=== PATIENT | male | born 2000 | race Hispanic/Latino ===

== ENCOUNTER 2021-12-26 09:25 | Emergency (ER) | payer OTHER ==
[2021-12-26 10:18] LABS: Absolute Lymphocytes (CBC) 1.4 K/uL (0.7-4.9); Hematocrit 44.7 % (39.6-49.0); Lymphocytes % 23.6 % (15.3-44.8); MCV 90.6 fL (80-100); MPV 8.8 fL (7.6-11.3); RBC Red Blood Cell Count 4.93 M/uL (4.33-5.43)
[2021-12-26] MEDS ORDERED: ONDANSETRON 4 MG/2 ML VIAL ONE (10:19)
[2021-12-26] MEDS ORDERED: NA CHLORIDE 0.9% 1,000 ML ONE (10:19)
[2021-12-26] MEDS ORDERED: FAMOTIDINE 20 MG/2 ML VIAL IV ONE (10:19)
[2021-12-26 10:31] LABS: Albumin 4.5 g/dL (3.4-5.0); Bilirubin Total 0.5 mg/dL (0.2-1.0); Potassium 3.8 mmol/L (3.5-5.1)
[2021-12-26 11:32] LABS: Urine Blood Negative (Negative); Urine Glucose Negative (Negative); Urine Protein Trace (Negative); Urine Specific Gravity 1.025 (1.005-1.030)
--- NOTE | 2021-12-26 13:37 | ER ---
Nurse's Notes [facility] Name: Fernie Soliman Age: 21 yrs Sex: Male : 2000 Arrival Date: 12/26/2021 Time: 09:28 Bed 16 [facility] MD: Diagnosis: Vomiting Presentation: 12/26 09:34 Chief complaint: Patient states: N/V and generalized weakness that started last night kr3 after leaving gym. Coronavirus screen: Vaccine status: Patient reports receiving the 2nd dose of the covid vaccine. Client denies travel out of the [place] in the last 14 days. Ebola Screen: Patient denies travel to an Ebola-affected area in the 21 days before illness onset. Initial Sepsis Screen: Does the patient meet any 2 criteria? No. Patient's initial sepsis screen is negative. Does the patient have a suspected source of infection? Yes: Acute abdominal pain. Risk Assessment: Do you want to hurt yourself or someone else? Patient reports no desire to harm self or others. Onset of symptoms was December 25, 2021. 09:34 Method Of Arrival: Ambulatory kr3 09:34 Acuity: JESS 3 kr3 Triage Assessment: 09:37 General: Appears in no apparent distress. uncomfortable, Behavior is calm, cooperative, kr3 appropriate for age. Pain: Complains of pain in patient states all over. Historical: - Allergies: 09:36 No Known Allergies; kr3 - PMHx: 09:36 None; kr3 - PSHx: 09:36 None; kr3 - Immunization history:: Adult Immunizations up to date. - Social history:: Smoking status: Patient denies any tobacco usage or history of. Screenin:04 Abuse screen: Denies threats or abuse. Denies injuries from another. Nutritional jg9 screening: No deficits noted. Tuberculosis screening: No symptoms or risk factors identified. Fall Risk None identified. Assessment: 10:00 Reassessment: Patient appears in no apparent distress at this time. No changes from jg9 previously documented assessment. Patient and/or family updated on plan of care and expected duration. Pain level reassessed. Patient is alert, oriented x 3, equal unlabored respirations, skin warm/dry/pink. 11:00 Reassessment: Patient states feeling better. Patient states symptoms have improved. jg9 11:11 GI: Bowel sounds present X 4 quads. Abd is soft and non tender X 4 quads. jg9 11:45 Reassessment: Patient denied nausea, po challenge completed. jg9 12:00 Reassessment: No changes from previously documented assessment. Patient and/or family jg9 updated on plan of care and expected duration. Pain level reassessed. Patient is alert, oriented x 3, equal unlabored respirations, skin warm/dry/pink. 13:00 Reassessment: No changes from previously documented assessment. Patient and/or family jg9 updated on plan of care and expected duration. Pain level reassessed. Patient is alert, oriented x 3, equal unlabored respirations, skin warm/dry/pink. Vital Signs: 09:34 BP 143 / 81; Pulse 71; Resp 18; Temp 98.7; Pulse Ox 100% on R/A; Weight 96.16 kg; kr3 Height 5 ft. 6 in. (167.64 cm); Pain 8/10; 10:00 BP 135 / 62; Pulse 66; Resp 16 S; Pulse Ox 100% on R/A; jg9 10:30 BP 138 / 67; Pulse 60; Resp 16 S; Pulse Ox 97% ; jg9 11:00 BP 136 / 57; Pulse 65; Resp 16 S; Pulse Ox 95% on R/A; jg9 11:45 BP 144 / 81; Pulse 61; Resp 12 S; Pulse Ox 100% on R/A; jg9 13:00 BP 145 / 81; Pulse 64; Resp 16 S; Pulse Ox 98% on R/A; jg9 09:34 Body Mass Index 34.22 (96.16 kg, 167.64 cm) kr3 ED Course: 09:28 Patient arrived in ED. mr 09:36 Triage completed. kr3 09:37 Simón Perdomo PA is PHCP. jmm 09:37 Dain Anguiano MD is Attending Physician. jmm 09:37 Arm band placed on left wrist. Patient placed in an exam room, on a stretcher. kr3 09:51 Mel Ratliff, ANUJ is Primary Nurse. jg9 09:55 Inserted saline lock: 20 gauge in left antecubital area, using aseptic technique. Blood jg9 collected. 10:05 Patient has correct armband on for positive identification. Bed in low position. Call j9 light in reach. Side rails up X 1. 13:37 No provider procedures requiring assistance completed. jg9 13:37 IV discontinued. jg9 Administered Medications: 10:10 Drug: NS 0.9% 1000 ml Route: IV; Rate: 1 bolus; Site: left antecubital; jg9 11:06 Follow up: IV Status: Completed infusion; IV Intake: 1000ml j9 10:11 Drug: Pepcid (famotidine) 20 mg Route: IVP; Site: left antecubital; jg9 11:06 Follow up: Response: No adverse reaction jg9 10:13 Drug: Zofran (Ondansetron) 4 mg Route: IVP; Site: left antecubital; jg9 11:06 Follow up: Response: No adverse reaction; Nausea is decreased jg9 12:47 Drug: NS 0.9% 1000 ml Route: IV; Rate: 1 bolus; Site: left antecubital; jg9 13:41 Follow up: IV Status: Completed infusion; IV Intake: 1000ml j9 Medication: 13:37 VIS not applicable for this client. jg9 Intake: 11:06 IV: 1000ml; Total: 1000ml. jg9 13:41 IV: 1000ml; Total: 2000ml. jg9 Outcome: 13:37 Discharge ordered by . [facility] 13:37 Condition: stable jg9 13:44 Patient left the ED. jg9 13:44 Discharged to home ambulatory. jg9 13:44 Discharge instructions given to patient, Instructed on discharge instructions, follow up and referral plans. Demonstrated understanding of instructions, follow-up care, Prescriptions given X 1. Signatures: Simón Perdomo PA PA jmm Rivera, Mary Mel Ratliff RN RN jg9 Crystal Junior RN RN kr3
--- NOTE | 2021-12-26 13:37 | EDPHYS ---
Physician Documentation [facility] Name: Fernie Soliman Age: 21 yrs Sex: Male : 2000 Arrival Date: 12/26/2021 Time: 09:28 Bed 16 Private MD: ED Physician Dain Anguiano HPI: 12/26 10:00 This 21 yrs old Male presents to ER via Ambulatory with complaints of jmm Abdominal Pain, Vomiting. 10:00 Onset: The symptoms/episode began/occurred gradually, 1 day(s) ago. Is a 21-year-old jmm male with no chronic medical conditions presents emerged part with nausea and vomiting and abdominal cramping beginning 1 day ago after working out. Denies diarrhea. Denies fever. Denies infectious exposure. Denies recent antibiotic use.. Historical: - Allergies: 09:36 No Known Allergies; kr3 - PMHx: 09:36 None; kr3 - PSHx: 09:36 None; kr3 - Immunization history:: Adult Immunizations up to date. - Social history:: Smoking status: Patient denies any tobacco usage or history of. ROS: 10:00 Constitutional: Negative for fever, chills, and weight loss, Cardiovascular: Negative jm for chest pain, palpitations, and edema, Respiratory: Negative for shortness of breath, cough, wheezing, and pleuritic chest pain. 10:00 Abdomen/GI: Positive for abdominal pain, nausea and vomiting. 10:00 All other systems are negative. Exam: 10:00 Constitutional: This is a well developed, well nourished patient who is awake, alert, jmm and in no acute distress. Head/Face: atraumatic. Eyes: EOMI, no conjunctival erythema appreciated ENT: Moist Mucus Membranes Neck: Trachea midline, Supple Chest/axilla: Normal chest wall appearance and motion. Cardiovascular: Regular rate and rhythm. No edema appreciated Respiratory: Normal respirations, no respiratory distress appreciated 10:00 Back: Normal ROM Skin: General appearance color normal MS/ Extremity: Moves all extremities, no obvious deformities appreciated, no edema noted to the lower extremities Neuro: Awake and alert Psych: Behavior is normal, Mood is normal, Patient is cooperative and pleasant 10:00 Abdomen/GI: Inspection: abdomen appears normal, Bowel sounds: normal, Palpation: soft, nontender, in all quadrants. Vital Signs: 09:34 BP 143 / 81; Pulse 71; Resp 18; Temp 98.7; Pulse Ox 100% on R/A; Weight 96.16 kg; kr3 Height 5 ft. 6 in. (167.64 cm); Pain 8/10; 10:00 BP 135 / 62; Pulse 66; Resp 16 S; Pulse Ox 100% on R/A; jg9 10:30 BP 138 / 67; Pulse 60; Resp 16 S; Pulse Ox 97% ; jg9 11:00 BP 136 / 57; Pulse 65; Resp 16 S; Pulse Ox 95% on R/A; jg9 11:45 BP 144 / 81; Pulse 61; Resp 12 S; Pulse Ox 100% on R/A; jg9 13:00 BP 145 / 81; Pulse 64; Resp 16 S; Pulse Ox 98% on R/A; jg9 09:34 Body Mass Index 34.22 (96.16 kg, 167.64 cm) kr3 MDM: 10:00 Patient medically screened. celestina 13:36 Data reviewed: vital signs, nurses notes. Counseling: I had a detailed discussion with jono the patient and/or guardian regarding: the historical points, exam findings, and any diagnostic results supporting the discharge/admit diagnosis, lab results, the need for outpatient follow up, to return to the emergency department if symptoms worsen or persist or if there are any questions or concerns that arise at home. 14:44 ED course: Patient is alert nontoxic in appearance in the ED. Appears that the patient jono may have mild rhabdomyolysis. Physician patient advised increased fluid uptake and otherwise advised to return to the ER if you develop worsening vomiting, dark urine, body aches, or any other concerning symptoms.. 12/26 10:03 Order name: CBC with Diff; Complete Time: 10:22 [facility] 12/26 10:03 Order name: CMP; Complete Time: 10:32 [facility] 12/26 10:03 Order name: Lipase; Complete Time: 10:32 [facility] 12/26 11:33 Order name: Urine Dipstick-Ancillary; Complete Time: 11:36 [facility] 12/26 12:15 Order name: CPK; Complete Time: 12:42 [facility] 12/26 10:03 Order name: IV Saline Lock; Complete Time: 10:04 [facility] 12/26 10:03 Order name: Labs collected and sent; Complete Time: 10:04 [facility] 12/26 10:03 Order name: Urine Dipstick-Ancillary (obtain specimen); Complete Time: 11:27 [facility] 12/26 11:07 Order name: PO challenge; Complete Time: 11:35 [facility] Administered Medications: 10:10 Drug: NS 0.9% 1000 ml Route: IV; Rate: 1 bolus; Site: left antecubital; jg9 11:06 Follow up: IV Status: Completed infusion; IV Intake: 1000ml j9 10:11 Drug: Pepcid (famotidine) 20 mg Route: IVP; Site: left antecubital; j9 11:06 Follow up: Response: No adverse reaction 9 10:13 Drug: Zofran (Ondansetron) 4 mg Route: IVP; Site: left antecubital; jg9 11:06 Follow up: Response: No adverse reaction; Nausea is decreased j9 12:47 Drug: NS 0.9% 1000 ml Route: IV; Rate: 1 bolus; Site: left antecubital; jg9 13:41 Follow up: IV Status: Completed infusion; IV Intake: 1000ml jg9 Disposition: 17:57 Co-signature as Attending Physician, Dain Anguiano MD I agree with the assessment and kdr plan of care. Disposition Summary: 12/26/21 13:37 Discharge Ordered Location: Home [facility] Condition: Stable [facility] Diagnosis - Vomiting [facility] Followup: [facility] - With: Private Physician - When: 2 - 3 days - Reason: Recheck today's complaints, Continuance of care, Re-evaluation by your physician Discharge Instructions: - Discharge Summary Sheet [facility] - Vomiting, Adult [facility] Forms: - Medication Reconciliation Form [facility] - Thank You Letter [facility] - Antibiotic Education [facility] - Prescription Opioid Use [facility] - Work release form jg9 Prescriptions: - ondansetron 4 mg Oral tablet,disintegrating - place 1 tablet by TRANSLINGUAL route every 4-6 hours As needed; 20 tablet; [facility] Refills: 0, Product Selection Permitted Signatures: Dispatcher MedHoRUSTDain Rubio MD MD kdr Mickail, Joel, PA PA [facility] Mel Ratliff RN RN jg9 Vernon, Crystal, RN RN kr3
[2021-12-27 19:45] VITALS: TEMP 98.7
[2021-12-27 19:58] VITALS: BP 144/81; O2SAT 100
== END 2021-12-26 13:44 | disposition home or self-care (01) ==
LOC: ER 09:25
DX: R11.10 Vomiting, unspecified (principal)
CPT/HCPCS: 96361; 85025; 36415; 82550; 81003; 83690; 80053; 96375; 96374; 99284; J7030; J2405